=== PATIENT | male | born 1960 | race Caucasian/White ===

== ENCOUNTER 2023-06-02 01:08 | Day surgery (SDC) | payer BC, SELFPAY ==
[2023-05-26 11:36] VITALS: BMI 27.8
--- NOTE | 2023-05-31 10:49 | SUR.PREOP ---
Patient called regarding upcoming procedure. Message left on patient's voicemail regarding appointment times.
[2023-06-02 08:56] VITALS: BP 127/87; PULSE 71; RESP 16; TEMP 35.9; O2SAT 100
[2023-06-02] MEDS: LACTATED RINGERS 1,000 ML 150 ML IV CONT (09:09)
--- NOTE | 2023-06-02 09:58 | P.PNAN_ITS ---
Anes - Initial Pre Proc Eval Procedure: Operation Date: 06/02/23 10:00 Proposed Procedures p Screening Colonoscopy - Isai Lund DO Date/Time: 06/02/23 09:58 Surgeon: Isai Lund DO Pre Op Diagnosis: hx of colon polyps Patient Data Age: 62 Gender: M Height: 1.83 m Weight: 91.2 kg Last Vital Signs Temp 96.7 F L 06/02/23 08:56 Pulse 71 06/02/23 08:56 Resp 16 06/02/23 08:56 BP 127/87 06/02/23 08:56 Pulse Ox 100 06/02/23 08:56 O2 Del Method Room Air 06/02/23 08:56 Allergies Allergy/AdvReac Type Severity Reaction Status Date / Time Penicillins Allergy Unknown Unknown Verified 06/02/23 08:55 Home Medications Medication Instructions Recorded Confirmed Type losartan 100 1 tablet PO DAILY 05/26/23 06/02/23 History mg-hydrochlorothiazide 12.5 mg tablet rosuvastatin 10 mg tablet 10 mg PO DAILY 05/26/23 06/02/23 History Patient hx anesthesia problems: none Family hx anesthesia problems: none Results Review: All pre-operative results and documents have been reviewed as part of the pre- operative evaluation. [facility] Family History Family History (Updated 06/27/12 @ 08:55 by DOCTOR UNKNOWN) Other Family history of tuberculosis Hypertension Social History Social History Smoking status: Never smoker Alcohol intake: current Drinks per week: 1 Substance use: never Substance use type: does not use Living arrangements: with family Spiritual care concerns: No Anes - Eval Final PreProcedure Day of Procedure 06/02/23 09:58 Patient weight: normal Heart: regular rate and rhythm Lungs: clear to auscultation Airway: Mallampati scale class II Neurological: alert and oriented Last oral intake: >/= 8 hours ASA classification: III Emergent: no Anesthetic plan: proceed Anesthesia type and monitoring: general GIVS and standard monitoring Results Review: All pre-operative results and documents have been reviewed as part of the pre- operative evaluation. Informed Consent: The patient's anesthetic plan and its attendant risks and benefits were discussed with the patient/family/POA. Questions were solicited and answers provided to the satisfaction of the patient/family/POA.
--- NOTE | 2023-06-02 10:22 | PM.IMHP ---
H&P: HPI History of Present Illness Date/Time: 06/02/23 10:22 Chief Complaint: History of colon polyps Narrative: This is a 62-year-old man who presents for colonoscopy. His last colonoscopy was 5 years ago and polyps were removed. He denies any recent changes to his bowel habits. Denies hematochezia or melena. There is no family history of colon cancer. Review of Systems Review of Systems: All systems reviewed & are unremarkable except as noted in HPI and below Constitutional: Constitutional: Denies chills, Denies fever(s), Denies headache(s) and Denies weight loss Eyes: Eyes: Denies change in vision ENT: Denies dizziness, Denies headache(s), Denies neck mass and Denies throat swelling Cardiovascular: Cardiovascular: Denies chest pain, Denies lightheadedness and Denies dyspnea Respiratory: Respiratory: Denies cough, Denies dyspnea and Denies wheezing Gastrointestinal: Gastrointestinal: Denies abdominal pain, Denies change in bowel habits, Denies nausea and Denies vomiting Genitourinary: Genitourinary: Denies hematuria and Denies dysuria Musculoskeletal: Musculoskeletal: Reports as per HPI Integumentary/Breasts: Skin/Breast: Reports as per HPI Neurologic: Denies dizziness and Denies headache(s) Allergic/Immunologic: Allergic/Immunologic: Denies throat swelling and Denies wheezing [facility] Family History Family History (Updated 06/27/12 @ 08:55 by DOCTOR UNKNOWN) Other Family history of tuberculosis Hypertension Social History Social History Smoking status: Never smoker Alcohol intake: current Drinks per week: 1 Substance use: never Substance use type: does not use Living arrangements: with family Spiritual care concerns: No Meds Home Medications and Allergies Home Medications Medication Instructions Recorded Confirmed Type losartan 100 1 tablet PO DAILY 05/26/23 06/02/23 History mg-hydrochlorothiazide 12.5 mg tablet rosuvastatin 10 mg tablet 10 mg PO DAILY 05/26/23 06/02/23 History Allergies Allergy/AdvReac Type Severity Reaction Status Date / Time Penicillins Allergy Unknown Unknown Verified 06/02/23 08:55 Vital Signs Vital Signs - 24 hr 06/02/23 08:56 Temperature 35.9 C L Pulse Rate 71 Respiratory Rate 16 Blood Pressure 127/87 Pulse Oximetry 100 Oxygen Delivery Room Air Exam Const: General: no acute distress and alert Orientation/consciousness: patient oriented x3 HENMT: Head: normocephalic and atraumatic Ears: hearing grossly normal bilaterally Face/Nose/Sinus: Normal nares present Mouth: Yes Normal oral and palatal mucosa present Eyes: Periorbital: periorbital findings normal Sclera: sclerae normal EOM: EOMs intact bilaterally Neck: Neck: normal visual inspection, no lymphadenopathy and trachea midline Chest: Chest palpation & inspection: normal inspection of the chest Resp: Effort & Inspection: normal respiratory effort Auscultation: clear to auscultation bilaterally Cardio: Jugular venous distension: no JVD Rate: regular rate Rhythm: regular rhythm Heart sounds: S1 normal heart sound present and S2 normal heart sound present Peripheral pulses: Peripheral pulses 2+ throughout GI: Inspection: normal to inspection GI Palp: Yes Soft to palpation, No Tenderness to palpation present (GI), No Guarding due to palpation present (GI) and No Rebound tenderness present Percussion: Yes normal to percussion Auscultation: normal bowel sounds : General: Yes no CVA tenderness Back/Spine/Pelvis: Back: no CVA tenderness Neuro: General: patient oriented x3, no focal motor deficits and CN's II-XI intact bilaterally Cognition (Neuro): normal cognition Speech: normal speech Motor exam (neuro): 5/5 motor strength present throughout Extrem: General: capillary refill normal and no clubbing, cyanosis or edema Assessment and Plan Assessment and plan (1) History of colon polyps: Code(s): Z86.010 - Personal history of colonic
[2023-06-02 10:55] VITALS: BP 120/80; PULSE 71; RESP 19; O2SAT 98
[2023-06-02 11:05] VITALS: BP 135/97; PULSE 68; RESP 19; O2SAT 99
[2023-06-02 11:15] VITALS: BP 134/78; PULSE 65; RESP 18; O2SAT 99
== END 2023-06-02 11:16 | disposition home or self-care (01) ==
PROVIDERS: PCP Internal Medicine; Visit Provider Surgery
PROC: 0DJD8ZZ Inspection of Lower Intestinal Tract, Via Natural or Artificial Opening Endoscopic (ICD-10-PCS; CPT 45378; principal; 2023-06-02 10:00)
DX: Z12.11 Encounter for screening for malignant neoplasm of colon (principal); K63.5 Polyp of colon; K57.30 Diverticulosis of large intestine without perforation or abscess without bleeding; K64.8 Other hemorrhoids
CPT/HCPCS: 45385; 88305; J2704; J7120

== ENCOUNTER 2023-12-12 12:35 | Outpatient (CLI) | payer BC, SELFPAY ==
--- NOTE | 2023-12-12 13:40 | ECG_ITS ---
Test Date: 2023-12-12 13:55:21 Measurements Intervals [place] Rate: 72 P: 72 GA: 217 QRS: 19 QRSD: 97 T: 61 QT: 389 QTc: 428 Interpretive Statements SINUS RHYTHM WITH SINUS ARRHYTHMIA WITH FIRST DEGREE AV BLOCK OTHERWISE NORMAL ELECTROCARDIOGRAM No previous ECG available for comparison Electronically Signed On 12-12-2023 16:02:54 CDT by Alejandro Trevino M.D.
[2023-12-12 14:06] LABS: Basophils Absolute Auto 0.1 K/mm3 (0.0-0.1); Basophils Percent Auto 0.7 % (0.2-1.2); Eosinophils Absolute Auto 0.2 K/mm3 (0-0.3); Eosinophils Percent Auto 1.9 % (0-4.4); Hematocrit 44.3 % (42.0-52.0); Hemoglobin 14.3 g/dL (14.0-18.0); Immature Granulocyte Absolute 0.04 K/mm3 (0.00-0.031); Immature Granulocyte Percent A 0.5 % (0-0.5); Lymphocytes Absolute Auto 1.89 K/mm3 (0.9-3.2); Lymphocytes Percent Auto 22.8 % (18.3-44.2); Mean Corpuscular HGB Conc 32.3 g/dl (32-36); Mean Corpuscular Hemoglobin 29.9 pg (26-34); Mean Corpuscular Volume 92.5 fl (80-100); Mean Platelet Volume 10.1 fl (7.4-10.4); Monocytes Absolute Auto 0.7 K/mm3 (0.1-0.6); Neutrophils Absolute Auto 5.5 K/mm3 (1.3-6.7); Neutrophils Percent Auto 66.1 % (45.5-73.1); Platelet Count Result 272 k/mm3 (150-375); Red Blood Count 4.79 M/mm3 (4.6-6.20); Red Cell Distribution Width 13.7 % (11.5-14.5); White Blood Count 8.3 K/mm3 (4.5-10.0)
[2023-12-12 14:16] LABS: Albumin Level 4.4 g/dL (3.5-5.1); Anion Gap 6 mmol/L (4-12); Blood Urea Nitrogen 32 mg/dL (9-20); Calcium 8.9 mg/dL (8.4-10.2); Carbon Dioxide 26 mmol/L (22-30); Chloride 109 mmol/L (98-107); Estimated Glomerular Filt Rate > 60; Glucose 90 mg/dL (65-110); Potassium 3.9 mmol/L (3.4-5.0); Sodium 141 mmol/L (137-145)
[2023-12-12 14:25] LABS: Urine Cotinine NEGATIVE
[2023-12-12 19:16] LABS: Hemoglobin A1C 5.4 % (<5.7)
== END 2023-12-12 12:36 | disposition home or self-care (01) ==
LOC: ANHSURGERY 12:41
PROVIDERS: PCP Internal Medicine; Visit Provider Orthopaedic Surgery
DX: M16.11 Unilateral primary osteoarthritis, right hip (principal); Z01.818 Encounter for other preprocedural examination
CPT/HCPCS: 80048; 80307; 82040; 83036; 85025; 86850; 86900; 86901; 87081; 93005

== ENCOUNTER 2023-12-19 00:49 | Day surgery (SDC) | payer BC, SELFPAY ==
--- NOTE | 2023-12-12 12:53 | PC.NURSE ---
Report to the Outpatient Waiting Room, entrance under the green pavilion located off [facility], at time __6:00am on date ___12/19/23____. Planned Procedure Time: ___7:30am . Time changes happen often and if your time is changed the preop area will call you the afternoon before. - You and your visitor will be asked to self-screen and do not enter if you have any COVID symptoms. - A mask is optional within the hospital at this time. Patients may have clear liquids (water, carbonated beverages, clear teas, apple juice) until 3 hours prior to surgery with a maximum of 20 ounces. - No food from midnight until time of surgery. Take the following medications with a SIP of water the morning of surgery: ____NONE DO NOT STOP ANY OF YOUR OTHER PRESCRIPTION MEDICATIONS PRIOR TO SURGERY ?EXCEPT THE FOLLOWING Medications to discontinue per physician ___HOLD IBUPROFEN 7 DAYS PRE-OP [facility] DR MOSES Date to take last dose____12/11/23 Please no make-up, nail maori, hairspray, perfume, deodorant, or body powder the day of surgery. No jewelry (including any body piercings) or valuables the day of surgery, leave them at home. Please take a shower or bath the night before, or the morning of, surgery with an antibacterial soap. Wear comfortable, loose fitting clothing. - Jewelry must be removed prior to entering the operating room. Rings and piercings that are not removed may be cut off. - The hospital will not accept responsibility for valuables. - Please leave all valuables, including medications, at home the day of surgery. If you are going home after surgery, a licensed ross carrier driver must drive you home. - NO public transportation without another adult if you receive anesthesia. - We recommend that an adult stay with you for 24 hours following discharge. - We also recommend that you do not drive, make important decision, drink alcoholic beverages, or take any drugs that were not prescribed by your health care provider for at least 24 hours after your discharge time. Follow any additional instructions given to you from your surgeon. If you or anyone in your household have experienced Covid symptoms in the past week, please notify your surgeon or the nurse liaison at the phone number below for possible testing. Telephone instructions given to ___PATIENT and asked if any additional questions and then verbalized understanding. Patient advised to call surgeon office or pre surgery nurse liaison [phone] if any additional questions.
[2023-12-12 13:04] VITALS: BP 135/83; PULSE 78; RESP 16; TEMP 37.2; O2SAT 98; BMI 28.2
--- NOTE | 2023-12-16 11:35 | PM.IMHP ---
H&P: HPI History of Present Illness Date/Time: 12/16/23 11:35 Chief Complaint: Right hip DJD Narrative: 61-year-old male patient of Dr. Troncoso who presents today for right anterior total hip arthroplasty. Patient has been having symptoms for years in his right hip. It progressively got worse. At this point he has severe type 1 osteoarthritis in the hip. He is having symptoms on a daily basis and pain is affecting his daily lifestyle. He reached a point where he feels he is ready proceed with total hip arthroplasty. Review of Systems Review of Systems: All systems reviewed & are unremarkable except as noted in HPI and below PMFSH Past Medical History Medical History (Updated 12/11/23 @ 11:22 by Janak Ward MD) High cholesterol Hypertension Surgical History Surgical History (Updated 12/07/23 @ 15:44 by Ariana Orozco CMA) History of appendectomy History of hernia repair Family History Family History Other Family history of tuberculosis Hypertension Social History Social History (Updated 12/07/23 @ 15:45 by Ariana Orozco CMA) Smoking status: Never smoker Alcohol intake: current Drinks per week: 1 Substance use: never Substance use type: does not use Do You Feel Safe in your Home?: Yes Lack of Transportation: No Lack of Food: Never True Current Housing: I Have Housing Concerned About Future Housing: No Difficulty Paying Gas/Electric Bills: No Difficulty Paying for Meds: No Currently Unemployed: No Education: Trade/Vocational Certificate Difficulty w/ Childcare or Family Care: No Living arrangements: with family Additional living arrangements comments: Occupation/Education: occupation 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 BMI is 28.2. He walks with minimal limp. His right hip flexes to 120? internally rotates to 5? external rotation is 10?. With range of motion patient has his typical anterior lateral hip pain. Stinchfield maneuver causes him anterior lateral hip pain. He has no tenderness over the greater trochanter. He has normal abduction strength lateral position. Is no edema in lower extremities. Skin around the hip and groin crease are normal. 2+ dorsalis pedis posterior artery pulse palpable. Normal sensation in the right lower extremity. Resp: Auscultation: clear to auscultation bilaterally Cardio: Rate: regular rate Rhythm: regular rhythm Assessment and Plan Assessment and plan (1) Primary osteoarthritis of right hip: Code(s): M16.11 - Unilateral primary osteoarthritis, right hip Status: Acute Assessment and Plan: 61-year-old male who has severe osteoarthritis right hip with rather significant symptoms daily. Again this is affecting his daily lifestyle there this point feels he is ready proceed with total hip arthroplasty. Surgical procedures loss of risks and complications were discussed in detail and all questions were answered and we will proceed. Patient will see his primary care doctor for presurgical clearance. He will stop his ibuprofen any other aspirin products 1 week prior to surgery. Patient's nasal swab was negative. Hemoglobin is 14.3 and platelets are 272, his Chem panel was all within normal limits. Plan use Eliquis for DVT prophylaxis postopera
[2023-12-19] VITALS (11 sets, daily range): BP systolic 112–171; BP diastolic 70–99; PULSE 71–87; RESP 9–18; TEMP 36.1–37.4; O2SAT 95–100
--- NOTE | ~2023-12-19 | XR_ITS ---
EXAMINATION: XR surgery orthopedic DATE: 12/19/2023 11:20 INDICATION: Intraoperative evaluation during right total hip arthroplasty TECHNIQUE: Frontal view of the right hip was obtained. COMPARISON: 12/07/2023 FINDINGS: Intraoperative image during a right total hip arthroplasty demonstrate resection of the right femoral head and neck and subsequent placement of a noncemented right total hip arthroplasty which appears i n near anatomic alignment on the single frontal projection provided of the arthroplasty. No fractures in the visualized bones. IMPRESSION: 1. Expected appearance during right total hip arthroplasty. Reviewed, dictated and finalized at location B.
--- NOTE | ~2023-12-19 | XR_ITS ---
EXAMINATION: XR hip RT 1V w AP pelvis DATE: 12/19/2023 11:17 INDICATION: Postoperative evaluation following right total hip arthroplasty TECHNIQUE: Anteroposterior and lateral views of the right hip were obtained. COMPARISON: 12/07/2023 FINDINGS: Interval placement of a noncemented right total hip arthroplasty which appears well seated in near an atomic alignment. Acetabular component is affixed with at least a single screw. Expected subcutaneous gas and likely surgical drain in the postoperative bed. No fractures identified. Multiple phlebolit hs in the pelvis. IMPRESSION: 1. Right total hip arthroplasty, negative for postoperative purposes. Reviewed, dictated and finalized at location B.
[2023-12-19] MEDS: LACTATED RINGERS 1,000 ML 30 ML IV CONT ×2 (06:30→11:02)
--- NOTE | 2023-12-19 06:53 | P.PNAN_ITS ---
Anes - Initial Pre Proc Eval Procedure: Operation Date: 12/19/23 07:30 Proposed Procedures p Right Total Hip Arthroplasty Anterior Approach - Janak Ward MD Date/Time: 12/19/23 06:53 Surgeon: Janak Ward MD Pre Op Diagnosis: right hip oa Patient Data Age: 63 Gender: M Height: 1.83 m Weight: 94.4 kg Last Vital Signs Temp 37.2 C 12/12/23 13:04 Pulse 78 12/12/23 13:04 Resp 16 12/12/23 13:04 BP 135/83 12/12/23 13:04 Pulse Ox 98 12/12/23 13:04 O2 Del Method Room Air 12/12/23 13:04 Allergies Allergy/AdvReac Type Severity Reaction Status Date / Time Penicillins Allergy Unknown Hives Verified 12/12/23 12:59 Home Medications Medication Instructions Recorded Confirmed Type losartan 100 1 tablet PO DAILY 05/26/23 12/12/23 History mg-hydrochlorothiazide 12.5 mg tablet rosuvastatin 10 mg tablet 10 mg PO DAILY 05/26/23 12/12/23 History ibuprofen 200 mg tablet 400 mg PO Q6H PRN Pain 12/07/23 12/12/23 History Patient hx anesthesia problems: none Family hx anesthesia problems: none Results Review: All pre-operative results and documents have been reviewed as part of the pre-operative evaluation. [facility] Past Medical History Medical History (Updated 12/19/23 @ 06:56 by Khoi Del Cid MD) High cholesterol Hypertension Surgical History Surgical History History of appendectomy History of hernia repair Family History Family History Other Family history of tuberculosis Hypertension Social History Social History Smoking status: Never smoker Alcohol intake: current Drinks per week: 1 Substance use: never Substance use type: does not use Do You Feel Safe in your Home?: Yes Lack of Transportation: No Lack of Food: Never True Current Housing: I Have Housing Concerned About Future Housing: No Difficulty Paying Gas/Electric Bills: No Difficulty Paying for Meds: No Currently Unemployed: No Education: Trade/Vocational Certificate Difficulty w/ Childcare or Family Care: No Living arrangements: with family Additional living arrangements comments: Occupation/Education: occupation 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 Informed Consent: The patient's anesthetic plan and its attendant risks and benefits were discussed with the patient/family/POA. Questions were solicited and answers provided to the satisfaction of the patient/family/POA.
[2023-12-19] MEDS: VANCOMYCIN 1,500 MG/NS 500 ML BAG 250 MG IVPB (07:00)
[2023-12-19] MEDS: ACETAMINOPHEN 500 MG TABLET 1000 MG PO (07:00)
[2023-12-19] MEDS: TRANEXAMIC ACID 1,000MG/ISO100 1,000 MG/100 ML BAG 200 MG IVPB (07:00)
--- NOTE | 2023-12-19 07:13 | WPDHPUPDATE1 ---
History and Physical Update Update Date/Time: 12/19/23 07:13 History and Physical has been reviewed, including an updated exam of the patient. There are NO changes in the patient's condition. Risks, benefits, and alternatives have been discussed and questions answered. Patient agrees to proceed with procedure.
[2023-12-19] MEDS: ceFAZolin 2 GM/D5W 50 ML 2 GM/50 ML BAG IVPB ×3 (07:30→23:52)
[2023-12-19] MEDS: ceFAZolin SODIUM 1 GM VIAL 3 GM (08:20)
[2023-12-19] MEDS: SODIUM CHLORIDE 0.9% IV 37.7 ML, MORPHINE SULFATE INJ (*CRX) 2 MG, ROPivacaine HCL 1% 2... INFILTRATE (08:21)
[2023-12-19] MEDS: TRANEXAMIC ACID 1,000 MG/10 ML AMPUL 1000 MG IV PUSH (10:17)
[2023-12-19] MEDS: ceFAZolin SODIUM 1 GM VIAL 2 GM IV PUSH (10:18)
[2023-12-19] MEDS: KETOROLAC 15 MG/ML VIAL (*BKC) IV PUSH ×3 (10:20→23:52)
--- NOTE | 2023-12-19 10:42 | W.PM.PROC2 ---
Procedure Note - Detailed Date of Procedure 12/19/23 Pre-op Diagnosis right hip oa Post-op Diagnosis Same Procedure Performed Direct anterior approach right total hip arthroplasty Surgeon Janak Ward MD Cell Maker Adam Kelly PA-C Anesthesia General Description of Procedure Patient was brought to the operating room and general anesthesia with was administered. He received 2 g of Ancef weight based vancomycin 1 g of tranexamic acid preoperatively. The feet were padded with soft roll and boots applied and the patient moved to the OSI Kyle table. SCDs on the calves. Right hip was prepped draped usual fashion. 10 cm longitudinal incision was made starting 3 cm lateral and 1 cm distal to the ASIS. The fascia over the tensor fascia kim was exposed and longitudinally incised elevated off the anterior 1/2 the TFL muscle. Interval between rectus femoris and TFL was developed and crossing branches of ascending lateral femoral circumflex vessels were ligated with suture divided. Retractor was placed anteromedial to the capsule the hip abducted internally rotated and the gluteus minimus elevated off the lateral capsule. Inverted T capsulotomy was performed. Femoral neck osteotomy made according to preoperative templating. Femoral head was removed. It measured 50-1/2 mm in diameter. Severe arthritic change noted in the femoral head and acetabulum. X-ray confirmed appropriate neck cut. The hip was externally rotated and extended and we confirmed release the lateral capsule from the saddle. He seemed to have adequate mobility so I did not incise the interval between conjoined tendon and piriformis which we left intact. The leg back in the orders on position traction external rotation acetabulum was prepared. We medialized with a 44 Reamer to the medial wall reamed up to 53 mm which was the appropriate size. A gentle full seating of the 54 Reamer was carried out and the 54 acetabular component was fully seated with excellent press fit. Single screw was placed in the ilium. Cup was placed at 40? of abduction and appropriate anteversion. 0 degree 36 mm inner diameter liner was impacted and large anterior and inferior osteophytes removed. The leg was externally rotated and extended with the table hook in place and the proximal femur broached to a size 6 Actis which still had torsional play the size 7 was rock-solid. The 1.5 head on the high offset neck was trialed. There was appropriate stability. Fluoro was brought in that showed we were about 2 mm longer than the other side according to the lesser trochanters. Offset was equal. We countersunk the broach 2 more mm trialed again still had appropriate soft tissue tension and stability appropriate Shuck. The neck was calcar planed and the size 7 high offset Actis stem fully seated without difficulty. No cracks in the calcar. We trialed 1 more time with a 1.5 x 36 head stability appropriate the real ceramic 1.5 x 36 head was impacted onto the clean and dry acetabulum after thorough irrigation with antibiotic solution. Hip reduced stability reconfirmed. Final fluoroscopic x-ray obtained. The superior capsular flap incision was approximated with 2. Vicryl. Local anesthetic cocktail was injected in the soft tissues around the hip. Fascia closed with running 1. Vicryl drain placed deep in the subcu skin closed with 2 subcutaneous Vicryl and glue. Cell Saver saved 275 with 125 packed cells returned. I estimated total blood loss of 350. Two additional g of Ancef and 1 g of TXA given time wound closure. He was transferred postop recovery room stable condition. No complications. Bone quality was excellent and we will allowing to be weight-bearing as tolerated postoperatively. [facility] [place] - Charge Forward: Surgery Billing (Right total hip replacement)
--- NOTE | 2023-12-19 11:08 | PM.OP ---
Procedure Note - Brief Procedure Note - Brief Date of procedure: 12/19/23 right hip oa Procedure performed: Right anterior total hip arthroplasty Surgeon: YOANA Hannon Description of procedure: 63-year-old male who underwent right anterior total hip arthroplasty on 12/18. I was involved in the procedure including positioning the patient on the OR table. First assisting through the time of surgery As well as wound closure. I did assist getting patient to recovery room. Total time spent was 3-1/2 hours
[2023-12-19] MEDS: fentaNYL CITRATE INJ (*CRX) 100 MCG/2 ML VIAL 25 MCG IV PUSH ×3 (11:19→11:41)
[2023-12-19] MEDS: SODIUM CHLORIDE 0.9% IV 1,000 ML 125 ML IV CONT (12:20)
--- NOTE | 2023-12-19 12:20 | ADMGEN ---
This patient, Russel Rodas, was admitted to [facility] Surg Room 328-01. Patient/family oriented to hospital policies and general routines including ID bracelet, bed and alarms, visiting hours, pain management, procedures, bathroom and other care routines, personal items, smoking policy, room service/diet, and visiting hours. Information on how to activate the Rapid Response Team has been discussed. Patient/Family are encouraged to report perceived risks to care and to ask questions if they do not understand what they are told or what they should do.
[2023-12-19] MEDS: oxyCODONE HCL (*CRX) 5 MG TAB IR PO ×4 (12:42→23:53)
[2023-12-19] MEDS: ACETAMINOPHEN 325 MG TABLET 650 MG PO ×4 (12:42→23:53)
--- NOTE | 2023-12-19 12:51 | WPDCN ---
Assessment and Plan Assessment and plan (1) Primary osteoarthritis of right hip: Code(s): M16.11 - Unilateral primary osteoarthritis, right hip Status: Acute Assessment and Plan: Postoperative day 0 status post right total hip arthroplasty. Wound care, pain control, DVT prophylaxis deferred to Dr. Ward. (2) Vasovagal syncope: Code(s): R55 - Syncope and collapse Status: Acute Assessment and Plan: This occurred after he was working with physical therapy. Likely due to a combination of minimal intake today, standing/exercises with PT, and pain. Bladder feels a bit distended which could be a precipitating factor as well. Monitor orthostatic vital signs and check EKG. (3) Hypertension: Code(s): I10 - Essential (primary) hypertension Status: Acute Assessment and Plan: He had an episode of hypotension after working with therapy. Hold antihypertensives for now and monitor orthostatic vital signs and blood pressures closely. (4) Hyperlipidemia: Code(s): E78.5 - Hyperlipidemia, unspecified Status: Acute Assessment and Plan: Continue statin and check LFTs. Plan Thank you for allowing us to participate in this patient's care. Please do not hesitate to contact us with any questions. HPI Data of Consult Date/Time: 12/19/23 13:30 Requesting Physician: Janak Ward MD Consult Narrative Reason for consult: Medical management. Narrative: This is a very pleasant 63-year-old male with osteoarthritis, hypertension, and hyperlipidemia whom the hospitalist service has been consulted for help managing his medical conditions postoperatively. He presented today for elective right total hip arthroplasty due to ongoing pain in his right hip despite conservative outpatient treatment. His surgery was performed under general anesthesia with no immediate complications documented and an estimated blood loss of 350 mL with 125 mL returned via Cell Saver. He has been up and working with physical therapy and he reportedly did very well. Following therapy he sat in a chair at the bedside as he did not want to get back in bed yet. He had what sounds like a brief vasovagal response while in the chair. He describes feeling warm, lightheaded, and nauseated. Family members noted that he was very sweaty and pale. His head slumped backwards had a very brief loss of consciousness. Family members called nursing staff immediately at which time his blood pressure was reportedly in the low 90s over 50s systolic. Once he felt better he was transition back to bed in his blood pressures have been stable since that time. His pain has been pretty well controlled. He has not had much to eat as his appetite is not great. He has not yet urinated since surgery. He denies chest pain, pleuritic pain, palpitations, sensations of racing heart, shortness of breath, nausea, vomiting, and diarrhea. He also denies paresthesias, skin color, and temperature changes distal to the surgical site. Regarding his chronic medical conditions, he is treated for hypertension and hyperlipidemia. Both of these are well controlled on home medication to his knowledge. He denies family and personal history of venous thromboembolism. Review of Systems Review of Systems: 12 systems were reviewed and are negative except for as per HPI. [facility] Past Medical History Medical History Colon polyps Hyperlipidemia Hypertension Kidney stones Obstructive sleep apnea Does not use CPAP. Surgical History Surgical History History of appendectomy (1982) History of colonoscopy with polypectomy History of hernia repair History of left inguinal hernia repair (2012) History of total right hip arthroplasty (12/19/23) Family History Family History Other
[2023-12-19] MEDS: SENNA/DOCUSATE SODIUM TABLET 2 TAB PO (17:20)
[2023-12-19] MEDS: VANCOMYCIN 1,000 MG/NS 250 ML 1,000 MG/250 ML BAG 250 MG IVPB (18:19)
--- NOTE | 2023-12-19 19:53 | ECG_ITS ---
Test Date: 2023-12-19 20:11:41 Measurements Intervals [place] Rate: 83 P: 65 MO: 208 QRS: -2 QRSD: 97 T: 31 QT: 389 QTc: 460 Interpretive Statements SINUS RHYTHM WITH FIRST DEGREE AV BLOCK BORDERLINE ECG Compared to ECG 12/12/2023 13:55:21 Sinus arrhythmia no longer present Electronically Signed On 12-19-2023 20:27:41 CDT by Mendez Dueñas D.O.
[2023-12-19 20:33] LABS: Hematocrit 38.8 % (42.0-52.0); Hemoglobin 12.6 g/dL (14.0-18.0)
[2023-12-19] MEDS: FAMOTIDINE 20 MG TABLET PO (20:33)
[2023-12-19 20:44] LABS: Anion Gap 8 mmol/L (4-12); Blood Urea Nitrogen 25 mg/dL (9-20); Carbon Dioxide 25 mmol/L (22-30); Chloride 110 mmol/L (98-107); Estimated CRCL calculation 74 ml/min; Estimated Glomerular Filt Rate > 60; Glucose 148 mg/dL (65-110); Potassium 4.3 mmol/L (3.4-5.0); Sodium 143 mmol/L (137-145)
[2023-12-20 01:55] VITALS: BP 133/73; PULSE 73; RESP 18; TEMP 36.8; O2SAT 97
[2023-12-20 05:44] VITALS: BP 116/68; PULSE 64; RESP 16; TEMP 36.3; O2SAT 98
[2023-12-20] MEDS: oxyCODONE HCL (*CRX) 5 MG TAB IR PO ×2 (05:44→08:55)
[2023-12-20] MEDS: ACETAMINOPHEN 325 MG TABLET 650 MG PO ×2 (05:44→08:56)
[2023-12-20] MEDS: VANCOMYCIN 1,000 MG/NS 250 ML 1,000 MG/250 ML BAG 250 MG IVPB (05:44)
[2023-12-20 06:58] LABS: Basophils Absolute Auto 0.1 K/mm3 (0.0-0.1); Basophils Percent Auto 0.4 % (0.2-1.2); Eosinophils Percent Auto 0.2 % (0-4.4); Hematocrit 40.7 % (42.0-52.0); Hemoglobin 12.2 g/dL (14.0-18.0); Immature Granulocyte Absolute 0.07 K/mm3 (0.00-0.031); Immature Granulocyte Percent A 0.6 % (0-0.5); Lymphocytes Absolute Auto 1.61 K/mm3 (0.9-3.2); Lymphocytes Percent Auto 12.8 % (18.3-44.2); Mean Corpuscular Hemoglobin 30.3 pg (26-34); Mean Platelet Volume 10.4 fl (7.4-10.4); Monocytes Absolute Auto 1.1 K/mm3 (0.1-0.6); Monocytes Percent Auto 8.6 % (2.6-8.5); Neutrophils Absolute Auto 9.7 K/mm3 (1.3-6.7); Neutrophils Percent Auto 77.4 % (45.5-73.1); Platelet Count Result 206 k/mm3 (150-375); Red Blood Count 4.03 M/mm3 (4.6-6.20); Red Cell Distribution Width 14.2 % (11.5-14.5); White Blood Count 12.6 K/mm3 (4.5-10.0)
[2023-12-20 07:06] LABS: Alanine Aminotransferase 12 U/L (6-50); Albumin Level 3.5 g/dL (3.5-5.1); Alkaline Phosphatase 65 U/L (38-126); Anion Gap 8 mmol/L (4-12); Aspartate Amino Transferase 24 U/L (17-59); Bilirubin,Total 0.8 mg/dL (0.2-1.3); Blood Urea Nitrogen 27 mg/dL (9-20); Calcium 7.8 mg/dL (8.4-10.2); Carbon Dioxide 21 mmol/L (22-30); Chloride 113 mmol/L (98-107); Estimated CRCL calculation 82 ml/min; Estimated Glomerular Filt Rate > 60; Glucose 105 mg/dL (65-110); Magnesium 2.1 mg/dL (1.6-2.3); Potassium 3.8 mmol/L (3.4-5.0); Sodium 142 mmol/L (137-145)
--- NOTE | 2023-12-20 08:01 | WPDANESPN ---
Anes - Prog Note Post-Op Date/Time: 12/20/23 08:01 Cardiovascular status: normal Respiratory status: normal Airway patency: baseline Mental status: baseline Post-Op hydration status: normal Vital Signs: Last Vital Signs Temp 36.3 C L 12/20/23 05:44 Pulse 64 12/20/23 05:44 Resp 16 12/20/23 05:44 BP 116/68 12/20/23 05:44 Pulse Ox 98 12/20/23 05:44 O2 Del Method Room Air 12/19/23 14:23 O2 Flow Rate 10 12/19/23 11:22 Pain Score (VAS): 08/27 I/O: Intake & Output 12/19/23 12/20/23 12/20/23 23:59 07:59 15:59 Intake Total 730 300 Output Total 30 Balance 730 270 Laboratory Tests 12/20/23 06:13 12/20/23 06:13 12/19/23 12/20/23 20:26 06:13 WBC 12.6 H RBC 4.03 L Hgb 12.6 L 12.2 L Hct 38.8 L 40.7 L MCV 101.0 H MCH 30.3 MCHC 30.0 L RDW 14.2 Plt Count 206 MPV 10.4 Immature Gran % (Auto) 0.6 H Neut % (Auto) 77.4 H Lymph % (Auto) 12.8 L [place] % (Auto) 8.6 H Eos % (Auto) 0.2 Baso % (Auto) 0.4 Lymph # (Auto) 1.61 [place] # (Auto) 1.1 H Eos # (Auto) 0.0 Baso # (Auto) 0.1 Abs Immat Gran (auto) 0.07 H Absolute Neuts (auto) 9.7 H Absolute Nucleated RBC 0.000 Nucleated RBC % 0.0 Sodium 143 142 Potassium 4.3 3.8 Chloride 110 H 113 H Carbon Dioxide 25 21 L Anion Gap 8 8 BUN 25 H 27 H Creatinine 1.00 0.90 Estim Creat Clear Calc 74 82 Estimated GFR > 60 > 60 Glucose 148 H 105 Calcium 8.0 L 7.8 L Magnesium 2.1 Total Bilirubin 0.8 Direct Bilirubin 0.0 AST 24 ALT 12 Alkaline Phosphatase 65 Total Protein 6.0 L Albumin 3.5 Post-procedural complaints: none Patient Feedback: Patient satisfied with anesthetic care.
[2023-12-20] MEDS: SENNA/DOCUSATE SODIUM TABLET 2 TAB PO (08:55)
[2023-12-20] MEDS: ROSUVASTATIN 10 MG TABLET PO (08:55)
[2023-12-20] MEDS: FAMOTIDINE 20 MG TABLET PO (08:55)
[2023-12-20] MEDS: polyethylene glycoL 3350 17 GM POWD.PACK PO (08:55)
[2023-12-20] MEDS: CEFDINIR 300 MG CAPSULE PO (08:55)
[2023-12-20] MEDS: APIXABAN 2.5 MG TABLET PO (08:55)
[2023-12-20] MEDS: ceFAZolin 2 GM/D5W 50 ML 2 GM/50 ML BAG IVPB (08:55)
[2023-12-20] MEDS: CELECOXIB 200 MG CAPSULE PO (08:56)
[2023-12-20 09:55] VITALS: BP 146/80; PULSE 71; RESP 18; TEMP 35.9; O2SAT 66
--- NOTE | 2023-12-20 10:03 | PM.DS ---
DS: Admitting Diagnosis Discharge Date 12/20/2023 Admitting Diagnosis Osteoarthritis right hip DS: Discharge Diagnosis Discharge Diagnosis (1) Status post right hip replacement: Code(s): Z96.641 - Presence of right artificial hip joint Status: Acute Assessment and Plan: Patient had sense of osteoarthritis right hip and underwent right total hip arthroplasty yesterday. DS: Summary Hospital Course Hospital Course: Patient underwent direct anterior approach right total hip arthroplasty yesterday and is doing well. He has had an uneventful postoperative course. His wound looks fine we intact. He has been up walking in the halls. His hemoglobin this morning is 12.2 representing a mild acute blood loss anemia. BUN is 20 septic which is chronically mildly elevated creatinine 0.9. Creatinine clearance 82. He has been started on Celebrex 200 mg daily and he will take this for a total of 10 days for prophylaxis against heterotopic ossification. He will receive 300 mg twice daily for 7 days of Ceftin nerve for antibiotic infection prophylaxis. Oxycodone and Tylenol for pain control. Marcia Colace and MiraLax for constipation prevention. He is weight-bearing as tolerated with a walker. When he is feeling vigorous and has no fatigue or lightheadedness he may start using the cane in the left hand periodicly to exercise the muscles of the right hip. Time Spent with Patient Time attestation: Total time spent providing and/or coordinating discharge services: DS: Data Data Completed and Pending Labs on day of discharge: Labs from last 24 hours 12/20/23 12/19/23 06:13 20:26 WBC 12.6 H RBC 4.03 L Hgb 12.2 L 12.6 L Hct 40.7 L 38.8 L MCV 101.0 H MCH 30.3 MCHC 30.0 L RDW 14.2 Plt Count 206 MPV 10.4 Immature Gran % (Auto) 0.6 H Neut % (Auto) 77.4 H Lymph % (Auto) 12.8 L [place] % (Auto) 8.6 H Eos % (Auto) 0.2 Baso % (Auto) 0.4 Lymph # (Auto) 1.61 [place] # (Auto) 1.1 H Eos # (Auto) 0.0 Baso # (Auto) 0.1 Abs Immat Gran (auto) 0.07 H Absolute Neuts (auto) 9.7 H Absolute Nucleated RBC 0.000 Nucleated RBC % 0.0 Sodium 142 143 Potassium 3.8 4.3 Chloride 113 H 110 H Carbon Dioxide 21 L 25 Anion Gap 8 8 BUN 27 H 25 H Creatinine 0.90 1.00 Estim Creat Clear Calc 82 74 Estimated GFR > 60 > 60 Glucose 105 148 H Calcium 7.8 L 8.0 L Magnesium 2.1 Total Bilirubin 0.8 Direct Bilirubin 0.0 AST 24 ALT 12 Alkaline Phosphatase 65 Total Protein 6.0 L Albumin 3.5 Discharge Plan Discharge Patient Disposition: Home, Self-Care Discharge Instructions: PARADISE MOSES M.D [facility] [address] [address] [address] [place] [address] POST-OPERATIVE DISCHARGE INSTRUCTIONS ANTERIOR TOTAL HIP ARTHROPLASTY 1. Move toes/feet up and down every hour while awake. 2. Be up walking every hour while awake. 3. Use walker social science instructor if instructed to use walker social science instructor.When you are allowed to use the cane, use the cane in the opposite hand. 4. When resting, do not rest in the chair. Rather, lie on your back, with back flat, and the leg elevated above heart to minimize swelling. You may put a pillow under your head. Do not rest in a chair. Resting in the chair results in swelling in the leg. Significant swelling could indicate a blood clot and if this occurs, call the office (or go to the ER) to have a venous ultrasound performed. Its ok to sit in the chair to eat and use the toilet and to receive a guest but sitting in a chair will cause your leg to swell. so try to minimize sitting in a chair. 5. Wound Care: Apply a folded 4x4 sponge to incision and hold with crossing strips of 1 inch Transpore tape. 6. Follow weight bearing status as instructed: 7. May shower. Remove dressing before shower and reapply dressing after shower. Patient Instructions: Apixaban (By mouth) Discharge Medications
--- NOTE | 2023-12-20 18:38 | PM.IMPN ---
Progress Note: A&P Assessment and Plan (1) Primary osteoarthritis of right hip: Code(s): M16.11 - Unilateral primary osteoarthritis, right hip Status: Acute Assessment and Plan: Postoperative day 0 status post right total hip arthroplasty. Wound care, pain control, DVT prophylaxis deferred to Dr. Ward. (2) Vasovagal syncope: Code(s): R55 - Syncope and collapse Status: Acute Assessment and Plan: This occurred after he was working with physical therapy. Likely due to a combination of minimal intake today, standing/exercises with PT, and pain. Bladder feels a bit distended which could be a precipitating factor as well. Monitor orthostatic vital signs and check EKG. (3) Hypertension: Code(s): I10 - Essential (primary) hypertension Status: Acute Assessment and Plan: He had an episode of hypotension after working with therapy. Hold antihypertensives for now and monitor orthostatic vital signs and blood pressures closely. (4) Hyperlipidemia: Code(s): E78.5 - Hyperlipidemia, unspecified Status: Acute Assessment and Plan: Continue statin and check LFTs. Plan Assessment and plan (1) Primary osteoarthritis of right hip: Code(s): M16.11 - Unilateral primary osteoarthritis, right hip Status: Acute Assessment and Plan: Postoperative day 0 status post right total hip arthroplasty. Wound care, pain control, DVT prophylaxis deferred to Dr. Ward. (2) Vasovagal syncope: Code(s): R55 - Syncope and collapse Status: Acute Assessment and Plan: This occurred after he was working with physical therapy. Likely due to a combination of minimal intake today, standing/exercises with PT, and pain. Bladder feels a bit distended which could be a precipitating factor as well. Monitor orthostatic vital signs and check EKG. (3) Hypertension: Code(s): I10 - Essential (primary) hypertension Status: Acute Assessment and Plan: He had an episode of hypotension after working with therapy. Hold antihypertensives for now and monitor orthostatic vital signs and blood pressures closely. (4) Hyperlipidemia: Code(s): E78.5 - Hyperlipidemia, unspecified Status: Acute Assessment and Plan: Continue statin and check LFTs. Time Spent With Patient Time with patient: 25 - 35 minutes Subjective Date/time seen: 12/20/23 18:38 Interval history: Reason for consult: Medical management. Narrative: Russel Rodas is a 63-year-old male with osteoarthritis, hypertension, and hyperlipidemia whom the hospitalist service has been consulted for help managing his medical conditions postoperatively. He presented today for elective right total hip arthroplasty due to ongoing pain in his right hip despite conservative outpatient treatment. His surgery was performed under general anesthesia with no immediate complications documented and an estimated blood loss of 350 mL with 125 mL returned via Cell Saver. He has been up and working with physical therapy and he reportedly did very well. Following therapy he sat in a chair at the bedside as he did not want to get back in bed yet. He had what sounds like a brief vasovagal response while in the chair. He describes feeling warm, lightheaded, and nauseated. Family members noted that he was very sweaty and pale. His head slumped backwards had a very brief loss of consciousness. Family members called nursing staff immediately at which time his blood pressure was reportedly in the low 90s over 50s systolic. Once he felt better he was transition back to bed in his blood pressures have been stable since that time. His pain has been pretty well controlled. He has not had much to eat as his appetite is not great. He has not yet urinated since surgery. He denies chest pain, pleuritic pain, palpitations, sensations of racing heart, shortness of breath, nausea, vomiting, and di
== END 2023-12-20 14:00 | disposition home or self-care (01) ==
LOC: ANHSURGERY 11:24 → ANH3MEDSUR 12:18
PROVIDERS: Physician Assistant; Physician Assistant Surgical; PCP Internal Medicine; Visit Provider Orthopaedic Surgery
PROC: (CPT 27130; principal; 2023-12-19 07:30)
DX: M16.11 Unilateral primary osteoarthritis, right hip (principal); R55 Syncope and collapse; I10 Essential (primary) hypertension; E78.5 Hyperlipidemia, unspecified; G47.33 Obstructive sleep apnea (adult) (pediatric)
CPT/HCPCS: 27130; 36415; 73501; 73502; 80048; 80076; 83735; 85014; 85018; 85025; 93005; 97110; 97161; 97165; 97530; 97535; 99199; A9270; C1776; J0171; J0330; J0690; J1100; J1170; J1200; J1885; J2250; J2270; J2405; J2704; J2795; J3010; J3370; J7030; J7050; J7120

== ENCOUNTER 2024-02-06 15:13 | Outpatient (CLI) | payer BC, SELFPAY ==
--- NOTE | ~2024-02-06 | US_ITS ---
RIGHT LOWER EXTREMITY VENOUS ULTRASOUND Ordering provider: Mati Troncoso MD History: . R CALF SWELLING/DVT . Comparison: None. FINDINGS: --COMMON FEMORAL: Patent and free of thrombus. Normal compressibility, phasic flow and augmentation. --PROXIMAL SUPERFICIAL FEMORAL: Patent and free of thrombus. Normal compressibility, phasic flow and augmentation. --DISTAL SUPERFICIAL FEMORAL: Patent and free of thrombus. Normal compressibility, phasic flow and au gmentation. --POPLITEAL: Patent and free of thrombus. Normal compressibility, phasic flow and augmentation. --POSTERIOR TIBIAL: Patent and free of thrombus. Normal compressibility, phasic flow and augmentation . IMPRESSION: Negative right lower extremity venous US. No deep vein thrombosis. Reviewed, dictated and finalized at location A.
== END 2024-02-06 15:14 | disposition home or self-care (01) ==
LOC: CHSIMG 15:15
PROVIDERS: PCP Internal Medicine; Visit Provider Internal Medicine
DX: R22.41 Localized swelling, mass and lump, right lower limb (principal)
CPT/HCPCS: 93971

== ENCOUNTER 2024-05-03 11:00 | Outpatient (CLI) | payer BC, SELFPAY ==
--- NOTE | ~2024-05-03 | CT_ITS ---
EXAMINATION: CT abdomen pelvis w con DATE: 05/03/2024 11:47 INDICATION: Acute left lower quadrant abdominal pain TECHNIQUE: Computed tomography (CT) of the abdomen and pelvis was performed with 100 mL Omnipaque-350 intravenous contrast. Automated exposure control and iterative reconstruction technique were employe d. The dose-length product was 814.27 mGy-cm. COMPARISON: 09/19/2017 FINDINGS: Minimal bibasilar atelectasis. Heart size is normal. No pericardial or pleural effusion. Calcified pa raesophageal lymph node and a couple splenic calcifications consistent with old granulomatous disease . Subcentimeter low-attenuation cyst in the right hepatic lobe. Gallbladder, pancreas and bilateral a drenal glands are normal. Multiple bilateral parenchymal and parapelvic cysts at both kidneys. Modera te distal predominant colonic diverticulosis with prominent focal colonic wall thickening and surroun ding inflammatory stranding at the mid sigmoid colon consistent with diverticulitis. There is a small amount of likely reactive nonloculated free fluid in the pelvis. No abscess or free intraperitoneal gas. Bladder is normal. Prostatomegaly. Small fat-containing right inguinal hernia. Right total hip a rthroplasty. Moderate lower thoracic and severe lumbosacral spondylosis with mild spondylosis of the intervening lumbar spine. IMPRESSION: 1. Radiographically uncomplicated sigmoid diverticulitis. Reviewed, dictated and finalized at location B. ESTATE ASSISTANT
[2024-05-03 11:15] LABS: Hematocrit 46.8 % (40.0-54.0); Hemoglobin 15.5 g/dL (14.0-18.0); Mean Corpuscular HGB Conc 33.1 g/dL (32-36); Mean Corpuscular Volume 90.7 fL (78.0-102.0); Platelet Count Result 283 K/mm3 (150-420); Red Blood Count 5.16 M/mm3 (4.70-6.10); Red Cell Distribution Width 13.8 % (11.6-14.4); White Blood Count 11.5 K/mm3 (4.8-10.8)
[2024-05-03 11:24] LABS: Estimated Glomerular Filt Rate > 60
[2024-05-03 11:28] LABS: Add Urine Microscopic? NO; Alanine Aminotransferase 13 U/L (16-63); Albumin Level 3.7 g/dL (3.4-5.0); Alkaline Phosphatase 106 U/L (46-116); Anion Gap 9 mmol/L (4-12); Appearance Urine Clear (Clear); Aspartate Amino Transferase 10 U/L (15-37); Bilirubin Urine Negative (Negative); Bilirubin,Total 0.9 mg/dL (0.00-1.00); Blood Urea Nitrogen 26 mg/dL (7-18); Blood Urine Negative (Negative); Calcium 9.1 mg/dL (8.5-10.1); Carbon Dioxide 28 mmol/L (21-32); Chloride 106 mmol/L (98-108); Color Urine Yellow (Yellow); Glucose 101 mg/dL (70-99); Glucose Urine UA Negative (Negative); Ketones Urine Negative (Negative); Leukocyte Esterase Ur Negative (Negative); Nitrate Urine Negative (Negative); Osmolality Calculated 300 mOsm/kg (285-295); Potassium 3.9 mmol/L (3.5-5.1); Protein Urine Negative (Negative); Sodium 143 mmol/L (136-145); Total Protein 7.6 g/dL (6.4-8.2); Urobilinogen Urine 0.2 mg/dL (0.2-1.0)
[2024-05-03 11:37] LABS: Lactic Acid Reflex 0.5 mmol/L (0.4-2.0)
== END 2024-05-03 11:01 | disposition home or self-care (01) ==
PROVIDERS: PCP Internal Medicine; Visit Provider Internal Medicine
DX: R10.32 Left lower quadrant pain (principal); K57.92 Diverticulitis of intestine, part unspecified, without perforation or abscess without bleeding
CPT/HCPCS: 36415; 74177; 80053; 81003; 83605; 85027; Q9967

== ENCOUNTER 2025-01-01 14:15 | Outpatient (CLI) | payer BC, SELFPAY ==
--- NOTE | ~2025-01-01 | US_ITS ---
EXAMINATION: US carotid duplex BI DATE: 01/01/2025 14:41 INDICATION: Left carotid bruit TECHNIQUE: Grayscale, color Doppler, and pulsed Doppler images of the cervical carotid arteries were obtained. The degree of vessel stenosis is placed in one of the following categories: normal, <50%, 5 0-69%, >=70% but less than near-occlusion, near-occlusion, or total occlusion. Note that percent sten osis relative to normal distal artery lumen diameter is indirectly measured from velocity measurement s as described by Colin, et al. Radiology 2003; 229:340-346. Notes: Normal: Peak systolic velocity <125 centimeters/sec and no plaque <50%. Peak systolic velocity <125 ( EDV <40; ICA/CCA PSV ratio <2.0; used these factors only a tandem lesions or low cardiac output or co ntralateral disease) 50-69 %: PSV 125-230 (EDV 40-100; ratio 2-4) >= 70% but less than near occlusion: PSV greater than 230 (EDV > 100; ratio> 4.0) Near Occlusion: PSV that is variable; markedly narrowed lumen Occlusion: Absent flow on color/spectral Doppler and no lumen on christiansen scale. COMPARISON: None. FINDINGS: RIGHT: The right common carotid artery (CCA) peak systolic velocity (PSV) is 106 cm/s. The right internal ca rotid artery (ICA) PSV is 71 cm/s. The right ICA end-diastolic velocity (EDV) is 30 cm/s. The right I CA/CCA PSV ratio is 0.67. The external carotid artery (ECA) PSV is 76 cm/s. There is antegrade flow i n the right vertebral artery. LEFT: The left CCA PSV is 91 cm/s. The left ICA PSV is 79 cm/s. The left ICA EDV is 40 cm/s. The left ICA/C CA PSV ratio is 0.87. The ECA PSV is 70 cm/s. There is antegrade flow in the left vertebral artery. IMPRESSION: 1. Less than 50% stenosis in the right internal carotid artery by sonographic criteria. 2. Less than 50% stenosis in the left internal carotid artery by sonographic criteria. Reviewed, dictated and finalized at location B. IMPRESSION: 1. Less than 50% stenosis in the right internal carotid artery by sonographic c brendan. 2. Less than 50% stenosis in the left internal carotid artery by sonographic cr cisco.
--- OUTSIDE RECORDS SUMMARY | 2025-01-01 14:18 | XMS_ITS | Data Portability ---
Author Organization [place] - [facility] [employer], Main Office Address [address] [place] [address] Care Team Providers Care Reiki Practitioner Name Role Phone RAJINDER TUTTLE Primary Care Provider RAJINDER TUTTLE Referring Provider Assessment Encounter Date Assessment Date Assessment LastModified by Organization Details LastModified Time 02/14/2023 02/14/2023 Impression: Patient now has radiographically severe osteoarthritis of his right hip. He is considering hip replacement which would be an appropriate consideration for him at this time. He has not utilized effective nonsteroidal anti-inflammatory medication. He does have some high blood pressure issues and takes losartan 100 mg for that and his blood pressure now is well controlled 125/80 typically. I have explained that nonsteroidal anti-inflammatory medications may increase the blood pressure the will need to check his blood pressure periodically to make sure that does not occur. I have discussed with him the option of taking diclofenac. He denies any liver or kidney disease or peptic ulcer disease. I explained that he wants to stay on this longer-term he we will need to check blood work after 3 months and then after every 6 months thereafter. If he takes this and has dramatic relief of his symptoms, potentially he could put off hip replacement for a period of time from several months to perhaps several years. Pre discussed that with hip replacement there is higher risk of requiring revision surgery if he is younger at the time of his surgery compared to when he is older however if he is severely symptomatic and his hip arthritis is substantially negatively impacting his lifestyle and his level of comfort, hip replacement would be a reasonable option for him at his age currently. He would like to give Diclofenac a try. I have prescribed diclofenac 50 mg twice daily. I explained that this is a lower dose and he does not notice any effect he can try taking it 3 times a day. He should take it regularly on a scheduled basis for optimal effect. I have given him instruction she described him possible side effects of anti-inflammatory medication use. I have also given him the Ortho info handout on total hip arthroplasty for his review and direct anterior approach booklet so he can study what is involved with hip replacement surgery in the event that he does not get active relief from the diclofenac. he will avoid the ibuprofen stop that now. I was in back in 6 weeks assess his progress. 40 minutes were spent in total care this patient more than half the time spent in [id number] care. Not available 02/21/2023 21:17:08 03/28/2023 03/28/2023 Patient returns. The diclofenac bothers his stomach so he could not tolerated. His right hip is still bother him. On a bad day his pain is 7/10. On a constant basis his pain is at least 4 5/10. 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 In mid May he starts his slow time and he would like to have his hip replaced at that time. Previous x-rays demonstrate severe osteoarthritis of the right hip. He has reviewed the booklets on total hip arthroplasty and direct anterior approach. I have discussed hip replacement with him in detail as well as risks of surgery. I explained that they will be numbness around the incision. Risk of infection blood clots pulmonary embolism heterotopic ossification component loosening fracture dislocation leg length discrepancy component wear or breakage necessitating revision surgery, nerve injury, bleeding, transfusion, and medical complications such as heart attack stroke pulmonary embolism and were reviewed in detail. When I asked him about his teeth he states that he does have a loose tooth that is symptomatic and needs to be pulled. He does not like going to the dentist and has procrastinate and getting this done. I have explained him that unfortunately he needs to have the loose tooth pulled before having his hip replaced and he must wait a minimum of 3 months after having the tooth pulled before he can have his hip replacement because the possibility will develop an infection in the tooth socket after this pulled and the risk of infection infecting his hip replacement. I reviewed with him that we would in the future require the take antibiotics before dental work. He states that his dentist is Dr. Valencia. he will call him this week and trying get in to have this done as soon as possible. I would like him to call us after the dental extraction and we can make plans for proceeding with hip replacement surgery minimum of 3 months after the extraction date. I would like to see him back 2 weeks before surgery to review everything with him again. I would like him to see Dr. Tuttle his primary care physician before surgery for medical evaluation. He does not appear to have any history of heart problems . He had high blood pressure but on losartan 100 mg his pressure has normalized. He also takes Crestor for cholesterol. 40 minutes were spent total care this patient more than half the time spent in [id number] care. Not available 04/03/2023 15:41:25 Plan of Treatment Reminders Order Date Submit Date Provider Last Modified By Organization Details Last Modified Time Details Appointments None recorded. Lab None recorded. Referral None recorded. Procedures None recorded. Surgeries None recorded. Imaging XR, hip + pelvis, unilateral 2022 023 [email or web address] [facility] [place], [address], [place], [address], 10:12:35 Medication Orders diclofenac sodium 50 mg tablet,karen yed release 2022 023 [email or web address] [facility] [address], [address], 21:08:54 Patient TargetsNo targets recorded. Patient InstructionsNo instructions recorded. Reason for Referral None Reported. Results Created Date Observation Date Name Description Value Unit Range Abnormal Flag Note LastModifiedBy Organization Detail LastModifiedTime 02/01/2005/24/2019 XR, hip, unila teral , 2 or 3 view No observ ation record ed. [email or web address] Not Available 2022 13:51:19 02/15/20 XR, hip + pelvi s, unila teral No observ ation record ed. [email or web address] [facility] [address], [place], [address], 02/21/2023 21:13:18 Result Notes None recorded. Problems Name Problem SNOMED Code Status Onset Date Resolution Date Notes Provider Name and Address Organization Details Recorded Time Localized, primary osteoarthr itis of the pelvic region and thigh 260853350 Active Not Available [facility] 3 13:11:53 Pain of right hip joint 6901510127675 02 Active [facility] 3 16:31:37 Problem Notes None recorded. Procedures Surgical History Date Name Laterality Status Provider Name and Address Organization Details Recorded Time 1 Hernia Surgery completed Ayanna Jett CNA [facility] 02/14/2023 16:31:07 Imaging Results None recorded. Procedure Notes None recorded. Medical Equipment None Reported. Allergies Allergen ID Allergen Name Allergen Category Reaction Reaction Severity Criticality Documentation Date Start Date Code Code System Note Provider Name and Address Organization Details Recorded Time 61750 Product containin g penicilli n (product) medicatio n hives Not available Not available 02/14/2023 75897 8001 SNOMED [facility] 3 16:30:04 Medications Name Sig Start Date Stop Date Status Note LastModified by Organization Details LastModified Time losartan 50 mg tablet 02/14 completed Not Available Not Available Not Available azithromycin 250 mg tablet 10/29 completed Not Available Not Available Not Available hydrocodone 5 mg-acetaminop hen 325 mg tablet 10/29 completed Not Available Not Available Not Available diclofenac sodium 50 mg tablet,delaye d release Take 1 tablet twice a day by oral route. 2022 active Not Available Not Available Not Avai lable methylprednis olone 4 mg tablets in a dose pack 10/29 completed Not Available Not Available Not Available losartan 100 mg tablet 02/14 completed Not Available Not Available Not Available rosuvastatin 10 mg tablet active Not Available Not Available Not Available losartan 100 mg-hydrochlor othiazide 12.5 mg tablet active Not Available Not Available Not Available hydrochloroth iazide 12.5 mg tablet 02/14 completed Not Available Not Available Not Available Vitals Date Recorded Body height Body mass index (BMI) Body weight Provider Name and Address Organization Details Last Updated DateTime 02/14/2023 180.34 cm 29.1 kg/m2 42820.81 g Ayanna Jett CNA [email or web address] 02/14/2023 16:35:48 Date Recorded Body height Provider Name an d Address Organization Details Last Updated DateTime 03/28/2023 180.34 cm SHITAL Alexander [place] [employer] 03/28/2023 16:06:39 Social History None recorded. Functional Status Question Answer Note LastModified by Organizat ion Details LastModified Time What is your level of alcohol consumption? Occasional [email or web address] Information not available 02/14/2023 Mental Status None recorded. Family History Relationship Description Onset Age of this Age Resolved Age Notes LastModified by Organization Details LastModified Time Father Hypertensive disorder [email or web address] Not available 2022 16:30:42 Medical History Condition Response ARTHRITIS Y Past Encounters Encounter ID Performer Location Encounter Start Date Encounter Closed Date Diagnosis/Indication Diagnosis SNOMED-CT Code Diagnosis ICD10 Code Diagnosis Note [id number] Janak Ward MD [facility] [place] [address] [place] [address] 02/14/2023 16:01:16 02/22/2023 10:12:35 Pain of right hip joint 0637367560 41421 M25.199 [id number] Janak Ward MD [facility] [place] [address] [place] [address] 03/28/2023 16:04:35 04/04/2023 11:28:41 Localized, primary osteoarthritis of the pelvic region and thigh 160978172 M19.91 Health Concerns Section Related Observation LastModified by Organization Detai ls LastModified Time None Recorded Concern Status LastModified by Organization Details LastModified Time None Recorded Advance Directives Directive None Recorded Payers Insurance Date Sequence Insurance Name Policy Number Policy Benz Covered Member ID Benz Member ID Guarantor Name 01/31/2023 1 [employer] [facility] ([facility]) Russel Rodas [id number] Russel Rodas 04/04/2023 1 [facility] ([facility]) [id number] Russel Rodas [id number] Russel Rodas Notes Date Note Type Note Provider Name and Address Organization Details Recorded Time 02/14/2023 text/html Patient returns for follow-up of his right hip osteoarthritis. He saw Dr. Diaz in 2019 had x-rays of the right hip which demonstrated moderately severe type 1 osteoarthritis the right hip with narrowing of the superolateral joint space to 1.5 mm. Today's x-rays show that it is now bone touching bone superolaterally. He works at [employer]. 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 He states that his worst pain is when he is working hard getting up and down at home. When he is standing on flat surfaces such at as at work at [employer] his symptoms are mild. He had 2 cortisone shots in the right hip joint back in 2019 under fluoroscopic guidance and they did not help very much. He takes ibuprofen 400 mg once a day typically. Janak Ward MD [address] [place] [address], [place] [address], [place], [address], [place] [facility] 02/21/2023 21:17:20
== END 2025-01-01 14:16 | disposition home or self-care (01) ==
LOC: CHSIMG 14:16
PROVIDERS: PCP Internal Medicine; Visit Provider Internal Medicine
DX: R09.89 Other specified symptoms and signs involving the circulatory and respiratory systems (principal); I65.23 Occlusion and stenosis of bilateral carotid arteries
CPT/HCPCS: 93880